=== PATIENT | male | born 1985 | race American Indian/Alaskan Native ===

== ENCOUNTER 2017-10-01 16:54 | Emergency (ER) | payer SELFPAY ==
[2017-10-01 17:07] VITALS: BP 132/71
[2017-10-01] MEDS ORDERED: TYLENOL PO ONE (17:07)
== END 2017-10-01 19:00 | disposition left against medical advice (07) ==
LOC: ED 16:54
DX: R51 Headache (principal); M79.1 Myalgia; Z53.21 Procedure and treatment not carried out due to patient leaving prior to being seen by health care provider